=== PATIENT | female | born 1955 | race Caucasian/White ===

== ENCOUNTER 2017-01-08 11:52 | Outpatient (CLI) | payer BC ==
--- NOTE | 2017-01-09 13:16 | Mammography Report ---
DIGITAL SCREENING MAMMOGRAM: 01/08/2017 CLINICAL INDICATION: A 61-year-old, for screening. COMPARISON: 01/2014, 01/2013, 10/2011, 01/2010. TECHNIQUE: Routine CC and MLO projections were obtained of the breasts. FINDINGS: The breasts demonstrate scattered fibroglandular densities bilaterally. Coarse and punctat e, typically benign calcifications are present. No suspicious masses, clustered microcalcifications, or regions of architectural distortion are identified. IMPRESSION: BENIGN FINDINGS. RECOMMENDATION: ROUTINE ANNUAL SCREENING UNLESS OTHERWISE CLINICALLY INDICATED. BIRADS CATEGORY 2-BENIGN FINDINGS. STANDARD QUALIFYING STATEMENTS 1. This examination was reviewed with the aid of Computer-Aided Detection (CAD). 2. A negative or benign imaging report should not delay biopsy if clinically suspicious findings are present. Consider surgical consultation if warranted. More than 5% of cancers are not identified by i maging. 3. Dense breasts may obscure an underlying neoplasm. JOB #: [id number] EXT JOB #:[id number]
== END 2017-01-08 11:53 | disposition home or self-care (01) ==
LOC: DI.N 11:52
PROVIDERS: ATTEND Family Medicine
DX: Z12.31 Encounter for screening mammogram for malignant neoplasm of breast (principal)
CPT/HCPCS: 77067

== ENCOUNTER 2021-01-02 11:32 | Outpatient (CLI) | payer OTHER ==
--- NOTE | 2021-01-03 08:44 | Mammography Report ---
BILATERAL DIGITAL SCREENING MAMMOGRAM 3D/2D: 01/02/2021 CLINICAL: Routine screening. Comparison is made to exams dated: 01/08/2017 mammogram, 02/11/2014 mammogram, and 02/10/2013 mammog [facility]. The tissue of both breasts is heterogeneously dense. This may lo wer the sensitivity of mammography. There are benign calcifications in both breasts. No significant masses, calcifications, or other findings are seen in either breast. There has been no significant interval change. IMPRESSION: BENIGN There is no mammographic evidence of malignancy. A 1 year screening mammogram is recommended. This exam was interpreted at Station ID: [id number]. NOTE: For mammograms, a report in lay terms will be sent to the patient. Approximately 15% of breast malignancies will not be visualized mammographically. In the management of a palpable breast mass, a negative mammogram must not discourage biopsy of a clinically suspicious lesion. Electronically Signed By: Dario conner/[place]:01/02/2021 13:06:49 ACR BI-RADS Category 2: Benign Finding(s) 3342F PARENCHYMAL PATTERN: (D) - The breast(s) demonstrate(s) heterogeneously dense fibroglandular parcarmen ma. BI-RADS CATEGORY: (2) - 2 RECOMMENDATION: (ANNUAL) - Recommend routine annual screening mammography. [id number] 1 year screening LATERALITY: (B)
== END 2021-01-02 11:33 | disposition home or self-care (01) ==
LOC: DI.N 11:32
DX: Z12.31 Encounter for screening mammogram for malignant neoplasm of breast (principal)

== ENCOUNTER 2021-10-02 08:00 | Outpatient (CLI) | payer MEDICARE, OTHER ==
--- NOTE | 2021-10-02 16:54 | XRAY Report ---
PROCEDURE: Ankle 3 View RT INDICATIONS: ANKLE FX TECHNIQUE: 3 views of the ankle were acquired. COMPARISON: 3 views of the ankle dated 09/25/2021. FINDINGS: Bones: Minimally displaced medial malleolar fracture is redemonstrated. Fracture fragments are in unc hanged anatomic alignment. Ankle mortise is normally aligned. No suspicious bony lesions. Soft tissues: No tibiotalar joint effusion. Achilles tendon appears normal. IMPRESSION: Stable medial malleolar fracture. Reviewed by: Emani Bronson MD on 10/02/2021 4:53 PM PDT Approved by: Emani Bronson MD on 10/02/2021 4:53 PM PDT Station ID: [id number]
== END 2021-10-02 23:59 | disposition home or self-care (01) ==
LOC: DI.WOS 08:00
PROVIDERS: ATTEND Physician Assistant Surgical
DX: S82.51XA Displaced fracture of medial malleolus of right tibia, initial encounter for closed fracture (principal)

== ENCOUNTER 2021-10-09 08:00 | Outpatient (CLI) | payer MEDICARE ==
--- NOTE | 2021-10-09 13:51 | XRAY Report ---
PROCEDURE: Ankle 3 View RT INDICATIONS: ANKLE FX TECHNIQUE: 3 views of the ankle were acquired. COMPARISON: Right ankle radiographs 10/02/2021 and 09/25/2021. FINDINGS: Bones: There is a transverse fracture of the medial malleolus with unchanged alignment compared to th e prior exam. Additionally, there is a suspected minimally displaced fracture of the lateral malleolu s that appears more prominent when compared to the prior exams, likely due to osseous resorption ira g the fracture line related to healing changes. Chronic healed fracture deformity of the distal tibia l shaft. Ankle mortise is normally aligned. No suspicious bony lesions. Small posterior calcaneal e nthesophyte. Soft tissues: Soft tissue edema is seen surrounding the ankle. IMPRESSION: No significant change in appearance or alignment of the previously seen medial malleolus fracture. An additional minimally displaced lateral malleoli fracture appears more prominent, with u nchanged alignment. Reviewed by: Robe Baker MD on 10/09/2021 1:50 PM PDT Approved by: Robe Baker MD on 10/09/2021 1:50 PM PDT Station ID: [id number]
--- NOTE | 2021-10-09 17:35 | XRAY Report ---
PROCEDURE: Knee 4 View RT INDICATIONS: KNEE PAIN TECHNIQUE: 4 views of the right knee(s) were acquired. COMPARISON: 09/25/2021 FINDINGS: Bones: No fractures or dislocations. Moderate tricompartmental osteoarthritis is seen with joint spa ce narrowing, subchondral sclerosis and marginal osteophyte formation. Suggestion of old healed fract ure involving right proximal fibular shaft is seen. No suspicious bony lesions. Soft tissues: Small suprapatellar joint effusion is noted. No suspicious soft tissue calcifications. IMPRESSION: 1. No acute right knee fracture or dislocation. Old healed right proximal fibular shaft fracture. Mod erate tricompartmental osteoarthritis as above. Small suprapatellar joint effusion. Reviewed by: Johnny Alamo MD on 10/09/2021 5:33 PM PDT Approved by: Johnny Alamo MD on 10/09/2021 5:33 PM PDT Station ID: [id number]
== END 2021-10-09 23:59 | disposition home or self-care (01) ==
LOC: DI.WOS 08:00
PROVIDERS: ATTEND Physician Assistant Surgical
DX: S82.844D Nondisplaced bimalleolar fracture of right lower leg, subsequent encounter for closed fracture with routine healing (principal); M17.11 Unilateral primary osteoarthritis, right knee; M25.461 Effusion, right knee; Z87.81 Personal history of (healed) traumatic fracture

== ENCOUNTER 2022-01-02 08:00 | Outpatient (CLI) | payer MEDICARE ==
--- NOTE | 2022-01-02 13:01 | XRAY Report ---
PROCEDURE: Ankle 3 View RT INDICATIONS: RIGHT ANKLE FX TECHNIQUE: 3 views of the ankle were acquired. COMPARISON: 11/06/2021 FINDINGS: Bones: Old healed distal tibial fracture. Medial and lateral malleolar fracture shows interval healin g from the prior exam. Ankle mortise is maintained. Soft tissues: No tibiotalar joint effusion. Achilles tendon appears normal. IMPRESSION: No evidence of acute fracture. Healing bimalleolar fractures without displacement. Old healed oblique distal tibial fracture Reviewed by: Suman South MD on 01/02/2022 11:59 AM [facility] Approved by: Suman South MD on 01/02/2022 11:59 AM [facility] Station ID: [id number]
== END 2022-01-02 23:59 | disposition home or self-care (01) ==
LOC: DI.WOS 08:00
PROVIDERS: ATTEND Physician Assistant Surgical
DX: S82.844D Nondisplaced bimalleolar fracture of right lower leg, subsequent encounter for closed fracture with routine healing (principal)

== ENCOUNTER 2022-12-07 15:15 | Outpatient (CLI) | payer MEDICARE ==
--- NOTE | 2022-12-07 18:22 | DEXA Report ---
PROCEDURE: Dexa Spine and/or Hip INDICATIONS: POST MENOPAUSAL TECHNIQUE: Dual energy x-ray absorptiometry (DXA) was performed on a [employer] System. Regions measur ed are the AP Spine, femoral neck, and if needed forearm. COMPARISON: None FINDINGS: Lumbar Spine: Bone Mineral Density 1.264 g/cm/cm,T score 0.7. Normal Left Femoral Neck: Bone Mineral Density 1.043 g/cm/cm, T score 0.0. Normal Left Hip: Bone Mineral Density 1.088 g/cm/cm,T score 0.6. Normal (T score greater or equal to -1.0: NORMAL) (T score from -1.1 to -2.4: OSTEOPENIA) (T score less than or equal to -2.5 to: OSTEOPOROSIS) Impression: By WHO criteria, this patient has normal bone mineral density. Patients with diagnosis of osteoporosis or osteopenia should have regular bone mineral density assess ment. For those eligible for Medicare, routine testing is allowed once every 2 years. Testing frequ ency can be increased for patients who have rapidly progressing disease or for those who are receivin g medical therapy to restore bone mass. Reviewed by: Natalia Gomez MD on 12/07/2022 6:21 PM PDT Approved by: Natalia Gomez MD on 12/07/2022 6:21 PM PDT Station ID: [id number]
== END 2022-12-07 15:16 | disposition home or self-care (01) ==
LOC: DI 15:15
PROVIDERS: ATTEND Physician Assistant
DX: N95.8 Other specified menopausal and perimenopausal disorders (principal)